=== PATIENT | male | born 1985 | race Caucasian/White ===

== ENCOUNTER 2016-12-10 18:15 | Inpatient (IN) | payer MEDICARE, OTHER ==
[~2016-12-10] VITALS: Ht 167.6 cm; Wt 76.0 kg
[2016-12-10] MEDS ORDERED: SODIUM CHLORIDE 0.9% 1,000ML IVBOLUS ONE (18:30)
[2016-12-10] MEDS ORDERED: MORPHINE SULFATE 4 MG/ML, 1ML IVPush PRN (18:30)
[2016-12-10] MEDS ORDERED: ONDANSETRON 2MG/ML, 2ML IVPush ONE (18:30)
[2016-12-10] MEDS ORDERED: ACETAMINOPHEN 325 MG TABLET PO ONE (18:30)
[2016-12-10] MEDS ORDERED: SODIUM CHLORIDE FLUSH 10ML SYR IVF ONE (18:30)
[2016-12-10] MEDS ORDERED: ACETAMINOPHEN 500 MG TABLET ONE (18:31)
[2016-12-10] MEDS ORDERED: ACETAMINOPHEN 500 MG TABLET PO ONE (19:00)
[2016-12-10 19:09] LABS: HEMATOCRIT 39.4 % (39.2-51.8); HEMOGLOBIN 13.4 g/dL (13.7-18.0); WHITE BLOOD COUNT 14.3 x10^3/uL (3.4-10)
[2016-12-10] MEDS ORDERED: MORPHINE SULFATE 4 MG/ML, 1ML ONE (19:11)
[2016-12-10] MEDS ORDERED: ONDANSETRON 2MG/ML, 2ML ONE ×2 (19:11→21:11)
[2016-12-10 19:18] LABS: BLOOD UREA NITROGEN 19 mg/dL (7-18)
[2016-12-10 19:45] LABS: DIFF TOTAL CELLS COUNTED 100 CELL DIFF
[2016-12-10 19:47] LABS: VERIFY COUNTS? YES
[2016-12-10] MEDS ORDERED: OMNIPAQUE 350 MG/ML, 100ML BOTTLE ONE (20:25)
[2016-12-10] MEDS ORDERED: CEFOTETAN PMX 1GM/50ML 50 ML IV ONE (20:30)
[2016-12-10] MEDS ORDERED: SODIUM CHLORIDE 0.9% 1,000 ML IV ONE (20:31)
[2016-12-10] MEDS ORDERED: CEFOTETAN PMX 1GM/50ML 50 ML ONE (20:37)
[2016-12-10] MEDS ORDERED: BUPIVACAINE/PF 0.5% ONE (20:39)
[2016-12-10] MEDS ORDERED: HYDROmorphone 1 MG/ML, 1ML IVPush PRN (21:00)
[2016-12-10] MEDS ORDERED: ONDANSETRON 2MG/ML, 2ML IVPush PRN ×3 (21:00→22:00)
[2016-12-10] MEDS ORDERED: SODIUM CHLORIDE FLUSH 10ML SYR IVF PRN (21:00)
[2016-12-10] MEDS ORDERED: MIDAZOLAM 1 MG/ML, 2ML ONE (21:04)
[2016-12-10] MEDS ORDERED: FENTANYL PF 100 MCG/2ML ONE ×5 (21:04→23:17)
[2016-12-10] MEDS ORDERED: SUCCINYLCHOLINE 20 MG/ML, 10ML ONE (21:11)
[2016-12-10] MEDS ORDERED: CEFAZOLIN 1,000 MG ONE (21:11)
[2016-12-10] MEDS ORDERED: PROPOFOL 10 MG/ML, 20ML ONE (21:11)
[2016-12-10] MEDS ORDERED: GLYCOPYRROLATE 0.2MG/1ML ONE (21:11)
[2016-12-10] MEDS ORDERED: NEOSTIGMINE 1 MG/ML, 10ML ONE (21:11)
[2016-12-10] MEDS ORDERED: DEXAMETHASONE 4 MG/ML, 1ML ONE (21:11)
[2016-12-10] MEDS ORDERED: ROCURONIUM 10 MG/ML ONE ×3 (21:11)
[2016-12-10] MEDS ORDERED: FENTANYL PF 100 MCG/2ML IV PRN (22:00)
[2016-12-10] MEDS ORDERED: HYDROmorphone 1 MG/ML, 1ML IV PRN (22:00)
[2016-12-10] MEDS ORDERED: LABETALOL 5MG/ML, 20ML IV PRN ×2 (22:00)
[2016-12-10] MEDS ORDERED: ACETAMINOPHEN 325 MG TABLET PO PRN (22:00)
[2016-12-10] MEDS ORDERED: METOCLOPRAMIDE 5 MG/ML, 2ML IV PRN ×2 (22:00)
[2016-12-10] MEDS ORDERED: hydrALAzine 20 MG/ML, 1ML IV PRN ×2 (22:00)
[2016-12-10] MEDS ORDERED: OXYcodone 5 MG/5 ML ORAL.SOL UDC PO PRN ×2 (22:00)
[2016-12-10] MEDS ORDERED: ACETAMINOPHEN 650 MG/20.3 ML UDC ONE (22:46)
[2016-12-10] MEDS ORDERED: OXYcodone 5 MG/5 ML ORAL.SOL UDC ONE (22:46)
[2016-12-10] MEDS: FENTANYL PF 100 MCG/2ML IV PRN ×4 (22:48→23:24)
[2016-12-10] MEDS: ACETAMINOPHEN 325 MG TABLET PO PRN ×2 (22:54→23:15)
[2016-12-10] MEDS ORDERED: HYDROmorphone 1 MG/ML, 1ML ONE (23:00)
[2016-12-10] MEDS: HYDROmorphone 1 MG/ML, 1ML IV PRN ×2 (23:02→23:09)
[2016-12-11] MEDS ORDERED: LACTATED RINGERS 1,000 ML IV ONE (00:30)
[2016-12-11] MEDS ORDERED: LACTATED RINGERS 1,000 ML IV SCH (00:30)
[2016-12-11] MEDS ORDERED: ONDANSETRON 2MG/ML, 2ML IVPush PRN (01:00)
[2016-12-11] MEDS: METRONIDAZOLE PMX 500MG/100ML 100 ML IV SCH ×3 (01:03→17:24)
[2016-12-11] MEDS: ACETAMINOPHEN 500 MG TABLET PO SCH ×4 (01:03→19:07)
[2016-12-11] MEDS: OXYcodone IR 5MG TABLET PO PRN ×5 (02:07→17:24)
[2016-12-11 03:51] VITALS: BP 100/66
[2016-12-11 05:38] LABS: HEMOGLOBIN 11.8 g/dL (13.7-18.0); WHITE BLOOD COUNT 13.2 x10^3/uL (3.4-10)
[2016-12-11 05:55] LABS: BLOOD UREA NITROGEN 14 mg/dL (7-18)
[2016-12-11 06:08] LABS: DIFF TOTAL CELLS COUNTED 100 CELL DIFF
[2016-12-11 06:10] LABS: VERIFY COUNTS? YES
[2016-12-11 07:29] VITALS: BP 104/67
[2016-12-11] MEDS: CEFTRIAXONE PMX 1GM/50ML 50 ML IV SCH (08:35)
[2016-12-11 13:30] VITALS: BP 105/61
[2016-12-11 20:00] VITALS: BP 105/66
[2016-12-11] MEDS: SODIUM CHLORIDE FLUSH 10ML SYR IVF SCH (21:31)
[2016-12-12] MEDS: METRONIDAZOLE PMX 500MG/100ML 100 ML IV SCH ×3 (00:35→18:08)
[2016-12-12] MEDS: ACETAMINOPHEN 500 MG TABLET PO SCH ×4 (00:35→18:08)
[2016-12-12 02:00] VITALS: BP 101/65
[2016-12-12 05:19] LABS: HEMOGLOBIN 10.9 g/dL (13.7-18.0); WHITE BLOOD COUNT 13.2 x10^3/uL (3.4-10)
[2016-12-12 05:54] LABS: DIFF TOTAL CELLS COUNTED 100 CELL DIFF
[2016-12-12 05:55] LABS: VERIFY COUNTS? YES
[2016-12-12 08:30] VITALS: BP 96/90
[2016-12-12] MEDS: SODIUM CHLORIDE FLUSH 10ML SYR IVF SCH ×2 (09:00→21:26)
[2016-12-12] MEDS: CEFTRIAXONE PMX 1GM/50ML 50 ML IV SCH (09:13)
[2016-12-12 13:20] VITALS: BP 101/63
[2016-12-12] MEDS: morphine SULFATE 10 MG/ML, 1ML IVPush PRN (13:28)
[2016-12-12 20:11] VITALS: BP 98/57
[2016-12-13] MEDS: METRONIDAZOLE PMX 500MG/100ML 100 ML IV SCH ×3 (00:39→17:51)
[2016-12-13] MEDS: ACETAMINOPHEN 500 MG TABLET PO SCH ×4 (00:39→18:32)
[2016-12-13 00:56] VITALS: BP 100/61
[2016-12-13 05:40] LABS: HEMATOCRIT 30.5 % (39.2-51.8); HEMOGLOBIN 10.3 g/dL (13.7-18.0); WHITE BLOOD COUNT 12.4 x10^3/uL (3.4-10)
[2016-12-13] MEDS: CEFTRIAXONE PMX 1GM/50ML 50 ML IV SCH (07:58)
[2016-12-13 08:30] VITALS: BP 115/62
[2016-12-13] MEDS: SODIUM CHLORIDE FLUSH 10ML SYR IVF SCH ×2 (09:00→19:41)
[2016-12-13 13:24] VITALS: BP 94/52
[2016-12-13] MEDS: OXYcodone IR 5MG TABLET PO PRN (19:41)
[2016-12-13 20:42] VITALS: BP 125/62
[2016-12-14] MEDS: METRONIDAZOLE PMX 500MG/100ML 100 ML IV SCH ×3 (01:41→17:19)
[2016-12-14 01:44] VITALS: BP 98/61
[2016-12-14] MEDS: OXYcodone IR 5MG TABLET PO PRN ×4 (02:41→19:35)
[2016-12-14] MEDS: CEFTRIAXONE PMX 1GM/50ML 50 ML IV SCH (08:15)
[2016-12-14 08:28] VITALS: BP 97/55
[2016-12-14] MEDS: SODIUM CHLORIDE FLUSH 10ML SYR IVF SCH ×2 (10:13→19:36)
[2016-12-14 13:32] VITALS: BP 105/69
[2016-12-14 19:52] VITALS: BP 94/56
[2016-12-15] MEDS: METRONIDAZOLE PMX 500MG/100ML 100 ML IV SCH ×3 (01:09→17:14)
[2016-12-15] MEDS: OXYcodone IR 5MG TABLET PO PRN ×2 (01:09→09:26)
[2016-12-15 02:04] VITALS: BP 100/56
[2016-12-15 07:11] VITALS: BP 105/62
[2016-12-15] MEDS: CEFTRIAXONE PMX 1GM/50ML 50 ML IV SCH (07:40)
[2016-12-15] MEDS: SODIUM CHLORIDE FLUSH 10ML SYR IVF SCH (09:00)
[2016-12-15] MEDS ORDERED: OMNIPAQUE 350 MG/ML, 100ML BOTTLE ONE (12:09)
[2016-12-15 19:26] VITALS: BP 105/46
[2016-12-16 01:30] VITALS: BP 101/61
[2016-12-16] MEDS: METRONIDAZOLE PMX 500MG/100ML 100 ML IV SCH ×3 (01:33→17:01)
[2016-12-16] MEDS: SODIUM CHLORIDE FLUSH 10ML SYR IVF SCH ×3 (01:33→19:45)
[2016-12-16 06:14] LABS: HEMATOCRIT 31.1 % (39.2-51.8); HEMOGLOBIN 10.4 g/dL (13.7-18.0); WHITE BLOOD COUNT 9.6 x10^3/uL (3.4-10)
[2016-12-16 08:01] VITALS: BP 108/58
[2016-12-16] MEDS: CEFTRIAXONE PMX 1GM/50ML 50 ML IV SCH (08:33)
[2016-12-16 14:00] VITALS: BP 120/73
[2016-12-16] MEDS ORDERED: LIDOCAINE 2%, 20ML ONE (17:29)
[2016-12-16] MEDS ORDERED: FENTANYL PF 100 MCG/2ML ONE (17:54)
[2016-12-16] MEDS ORDERED: FLUMAZENIL 0.1 MG/1 ML, 5ML ONE (17:54)
[2016-12-16] MEDS ORDERED: NALOXONE 1 MG/ML, 2ML ONE (17:54)
[2016-12-16] MEDS ORDERED: MIDAZOLAM 1 MG/ML, 5ML ONE (17:54)
[2016-12-16 20:23] VITALS: BP 99/56
[2016-12-17 01:30] VITALS: BP 92/56
[2016-12-17] MEDS: METRONIDAZOLE PMX 500MG/100ML 100 ML IV SCH ×3 (01:32→16:49)
[2016-12-17 05:19] LABS: HEMATOCRIT 32.3 % (39.2-51.8); HEMOGLOBIN 10.7 g/dL (13.7-18.0); WHITE BLOOD COUNT 7.8 x10^3/uL (3.4-10)
[2016-12-17 08:00] VITALS: BP 102/63
[2016-12-17] MEDS: CEFTRIAXONE PMX 1GM/50ML 50 ML IV SCH (08:00)
[2016-12-17] MEDS: SODIUM CHLORIDE FLUSH 10ML SYR IVF SCH ×2 (09:00→21:24)
[2016-12-17] MEDS: morphine SULFATE 10 MG/ML, 1ML IVPush PRN (11:01)
[2016-12-17 13:42] VITALS: BP 114/70
[2016-12-17 19:30] VITALS: BP 103/61
[2016-12-18] MEDS: METRONIDAZOLE PMX 500MG/100ML 100 ML IV SCH ×3 (01:32→17:18)
[2016-12-18 01:38] VITALS: BP 101/61
[2016-12-18 05:59] LABS: HEMATOCRIT 32.7 % (39.2-51.8); WHITE BLOOD COUNT 8.6 x10^3/uL (3.4-10)
[2016-12-18 08:00] VITALS: BP 108/52
[2016-12-18] MEDS: CEFTRIAXONE PMX 1GM/50ML 50 ML IV SCH (08:11)
[2016-12-18] MEDS: SODIUM CHLORIDE FLUSH 10ML SYR IVF SCH ×2 (09:22→21:00)
[2016-12-18 14:00] VITALS: BP 93/55
[2016-12-18 19:33] VITALS: BP 111/61
[2016-12-19] MEDS: METRONIDAZOLE PMX 500MG/100ML 100 ML IV SCH ×2 (00:53→09:26)
[2016-12-19 02:15] VITALS: BP 99/57
[2016-12-19 07:54] VITALS: BP 106/60
[2016-12-19] MEDS: SODIUM CHLORIDE FLUSH 10ML SYR IVF SCH (08:42)
[2016-12-19] MEDS: CEFTRIAXONE PMX 1GM/50ML 50 ML IV SCH (08:42)
[2016-12-19] MEDS ORDERED: OXYC-302 PO (10:53)
[2016-12-19] MEDS ORDERED: METR500T PO (10:54)
[2016-12-19] MEDS ORDERED: CEFU250S PO (10:55)
[2016-12-19] MEDS: OXYcodone IR 5MG TABLET PO PRN (12:19)
[2016-12-19 13:53] VITALS: BP 103/57
== END 2016-12-19 14:43 | disposition home or self-care (01) | DRG 853 ==
LOC: ED 20:26 → EDIP 20:31 → ED 20:44 → 4NOR 23:59 → DCLOUNGE 12-19 14:22
PROVIDERS: ADMIT Surgery; ATTEND Surgery
PROC: 0WJG4ZZ Inspection of Peritoneal Cavity, Percutaneous Endoscopic Approach (ICD-10-PCS; 2016-12-10)
PROC: 0W9G0ZZ Drainage of Peritoneal Cavity, Open Approach (ICD-10-PCS; principal; 2016-12-10 21:00)
PROC: 0WJG3ZZ Inspection of Peritoneal Cavity, Percutaneous Approach (ICD-10-PCS; 2016-12-16)
DX: A41.9 Sepsis, unspecified organism (principal); K35.2 Acute appendicitis with generalized peritonitis; D72.825 Bandemia; Z53.31 Laparoscopic surgical procedure converted to open procedure
CPT/HCPCS: 36415; 49406; 74000; 74177; 75989; 80048; 82040; 83605; 85025; 87040; 87070; 87075; 87077; 87186; 87205; 96361; 96374; 96375; 99156; 99157; C1894; J0690; J0696; J1100; J1170; J2250; J2405; J2704; J2710; J3010; J3490; Q9967; J0330; J2270; J2310; J7030; J7120; S0074

== ENCOUNTER → 2016-12-24 | Outpatient (CLI) | payer OTHER ==
[~2016-12-24] MED LIST: CEFU250S PO; METR500T PO; OXYC-302 PO
== END | disposition home or self-care (01) ==
LOC: WOUND 09:19
PROVIDERS: ATTEND Internal Medicine
DX: T81.31XA Disruption of external operation (surgical) wound, not elsewhere classified, initial encounter (principal); Y83.8 Other surgical procedures as the cause of abnormal reaction of the patient, or of later complication, without mention of misadventure at the time of the procedure
CPT/HCPCS: 11042; 97605; 99215

== ENCOUNTER → 2016-12-26 | Outpatient (CLI) | payer OTHER | END | disposition home or self-care (01) | LOC: WOUND 10:02 | PROVIDERS: ATTEND Internal Medicine Cardiovascular Disease | DX: T81.31XD Disruption of external operation (surgical) wound, not elsewhere classified, subsequent encounter (principal); Y83.8 Other surgical procedures as the cause of abnormal reaction of the patient, or of later complication, without mention of misadventure at the time of the procedure | CPT/HCPCS: 97605 ==

== ENCOUNTER → 2016-12-29 | Outpatient (CLI) | payer OTHER | END | disposition home or self-care (01) | LOC: WOUND 09:03 | PROVIDERS: ATTEND Physician Assistant | DX: T81.31XD Disruption of external operation (surgical) wound, not elsewhere classified, subsequent encounter (principal); Y83.8 Other surgical procedures as the cause of abnormal reaction of the patient, or of later complication, without mention of misadventure at the time of the procedure | CPT/HCPCS: 97605 ==

== ENCOUNTER → 2016-12-31 | Outpatient (CLI) | payer OTHER | END | disposition home or self-care (01) | LOC: WOUND 11:15 | PROVIDERS: ATTEND Internal Medicine | DX: T81.31XD Disruption of external operation (surgical) wound, not elsewhere classified, subsequent encounter (principal); Y83.8 Other surgical procedures as the cause of abnormal reaction of the patient, or of later complication, without mention of misadventure at the time of the procedure | CPT/HCPCS: 97597 ==

== ENCOUNTER → 2017-01-14 | Outpatient (CLI) | payer OTHER | END | disposition home or self-care (01) | LOC: WOUND 10:10 | PROVIDERS: ATTEND Internal Medicine | DX: T81.31XD Disruption of external operation (surgical) wound, not elsewhere classified, subsequent encounter (principal); Y83.8 Other surgical procedures as the cause of abnormal reaction of the patient, or of later complication, without mention of misadventure at the time of the procedure | CPT/HCPCS: 97597 ==

== ENCOUNTER → 2017-01-28 | Outpatient (CLI) | payer OTHER | END | disposition home or self-care (01) | LOC: WOUND 10:41 | PROVIDERS: ATTEND Internal Medicine | DX: T81.31XD Disruption of external operation (surgical) wound, not elsewhere classified, subsequent encounter (principal); Y83.8 Other surgical procedures as the cause of abnormal reaction of the patient, or of later complication, without mention of misadventure at the time of the procedure | CPT/HCPCS: 99213 ==